=== PATIENT | female | born 1960 | race Caucasian/White ===

== ENCOUNTER 2016-04-05 23:10 | Inpatient (IN) | payer BC ==
[~2016-04-05] VITALS: Ht 157.5 cm; Wt 60.4 kg
[~2016-04-05 23:10] MED LIST: ANTIHYPERTENSIVE; CYMBALTA60 MG PO; ELAVIL50 MG PO; ESTRADIOL0.5 MG PO; FIORICET 50-301 EACH PO; HYDROCHLOROTHIA25 MG PO; INDERAL10 MG PO; METOPROLOL TART25 MG PO; VALIUM5 MG PO; VERAPAMIL ER240 MG PO
[2016-04-05 23:32] LABS: HEMATOCRIT 37.7 % (36.0-46.0); MCH 30.8 PG (29.0-34.0); MCHC 34.5 G/DL (30.0-36.0); MCV 89.3 FL (83-99); MEAN PLAT.VOLUME 10.2 uM^3 (9.5-12.4); PLATELET COUNT 304 K/uL (156-360); RBC DIS.WIDTH-CV 12.8 % (11.8-14.6); RBC DIS.WIDTH-SD 41.1 % (39-53); RED BLOOD COUNT 4.22 M/uL (3.80-5.20); WHITE BLOOD COUNT 10.2 K/uL (4.1-10.2)
[2016-04-05 23:45] LABS: CHLORIDE 106 mEq/L (99-109); POTASSIUM 3.5 mEq/L (3.7-5.4); SODIUM 140 mEq/L (136-147)
[2016-04-05 23:47] LABS: GLUCOSE 124 mg/dL (70-99)
[2016-04-05 23:48] LABS: ANION GAP 9 MEQ/L (2-14)
[2016-04-05 23:51] LABS: GFR ESTIMATE (CALCULATED) > 59 mL/min/
[2016-04-05 23:52] LABS: UREA NITROGEN (BUN) 18 mg/dL (9-23)
[2016-04-05 23:55] LABS: TROP-I INTERPRETATION NEGATIVE; TROPONIN-I < 0.01 ng/mL (0.0-0.30)
[2016-04-06] VITALS (7 sets, daily range): BP systolic 129–153; BP diastolic 64–95
[2016-04-06 00:43] LABS: TOTAL BILIRUBIN 0.4 mg/dL (0.0-1.0)
[2016-04-06 00:44] LABS: ALKALINE PHOSPHATASE 94 IU/L (3-129)
[2016-04-06 00:46] LABS: DIRECT BILIRUBIN 0.2 mg/dL (0.0-0.3)
[2016-04-06 00:47] LABS: LIPASE 39 U/L (1.0-51.0)
[2016-04-06] MEDS ORDERED: RELPAX40 MG PO (01:03)
[2016-04-06] MEDS ORDERED: PROMETHAZINE12.5 M1 PO (01:03)
[2016-04-06] MEDS ORDERED: FIORICET 50-301 EACH PO (01:03)
[2016-04-06] MEDS ORDERED: VERAPAMIL HCL240 MG PO (01:04)
[2016-04-06] MEDS ORDERED: GINGER250 MG PO (01:04)
[2016-04-06] MEDS ORDERED: BLOOD BUILDER PO (01:04)
[2016-04-06] MEDS ORDERED: ROPINIROLE HCL2 M1 PO (01:04)
[2016-04-06] MEDS ORDERED: VITAMIN D31000 UNIT PO (01:04)
[2016-04-06] MEDS ORDERED: TUMERIC PO (01:04)
[2016-04-06] MEDS ORDERED: HAWTHORN150 MG PO (01:05)
[2016-04-06] MEDS ORDERED: NORCO 5/3251 TABLET PO (13:35)
== END 2016-04-06 18:56 | disposition home or self-care (01) | DRG 419 ==
LOC: EME 23:10 → EDOF 04-06 01:04 → 5EAST 04-06 01:41 → 3EAST 04-06 08:58
PROVIDERS: Emergency Medicine
PROC: 0FT44ZZ Resection of Gallbladder, Percutaneous Endoscopic Approach (ICD-10-PCS; principal; 2016-04-06)
DX: K80.12 Calculus of gallbladder with acute and chronic cholecystitis without obstruction (principal); I10 Essential (primary) hypertension; Z88.2 Allergy status to sulfonamides; Z88.0 Allergy status to penicillin; Z87.891 Personal history of nicotine dependence; Z98.1 Arthrodesis status
CPT/HCPCS: 71020; 76705; 80048; 80076; 83690; 83880; 84484; 85027; 88304; 93005; 99281; 99285; J0330; J0744; J1100; J1170; J1335; J2270; J2405; J2710; J2765; J3010; S0028

== ENCOUNTER → 2016-11-19 | Outpatient (CLI) | payer BC ==
[~2016-11-19] MED LIST changes: +BLOOD BUILDER PO; +GINGER250 MG PO; +HAWTHORN150 MG PO; +NORCO 5/3251 TABLET PO; +PROMETHAZINE12.5 M1 PO; +RELPAX40 MG PO; +ROPINIROLE HCL2 M1 PO; +TUMERIC PO; +VERAPAMIL HCL240 MG PO; +VITAMIN D31000 UNIT PO
== END | disposition home or self-care (01) ==
LOC: CDC 11:54
DX: G56.01 Carpal tunnel syndrome, right upper limb (principal); G56.21 Lesion of ulnar nerve, right upper limb; R00.1 Bradycardia, unspecified
CPT/HCPCS: 93000